=== PATIENT | female | born 2005 | race Two or more races ===

== ENCOUNTER 2025-04-24 15:46 | Observation (INO) | payer MEDICAID, SELFPAY ==
[2025-04-24 15:53] VITALS: BP 107/57; PULSE 85; RESP 100; RESP 16; TEMP 37.1; O2SAT 100; BMI 29.5
== END 2025-04-24 16:15 | disposition home or self-care (01) ==
PROVIDERS: Admitting Provider Obstetrics & Gynecology; Visit Provider Obstetrics & Gynecology
DX: O9A.213 Injury, poisoning and certain other consequences of external causes complicating pregnancy, third trimester (principal); S39.92XA Unspecified injury of lower back, initial encounter; Z3A.33 33 weeks gestation of pregnancy; V48.6XXA Car passenger injured in noncollision transport accident in traffic accident, initial encounter; Y92.410 Unspecified street and highway as the place of occurrence of the external cause
CPT/HCPCS: 59025; 59899

== ENCOUNTER 2025-06-10 03:57 | Inpatient (IN) | payer MEDICAID, SELFPAY ==
[2025-06-10] VITALS (289 sets, daily range): BP systolic 82–133; BP diastolic 52–85; PULSE 73–109; RESP 16–99; TEMP 36.7–37.3; O2SAT 91–100; BMI 30.4
[2025-06-10] MEDS: RINGERS LACTATED 1000 ML 1,000 ML 125 ML IV ×2 (04:57→17:08)
[2025-06-10 05:01] LABS: Basophils # (Auto) 0.1 Thou/mm3 (0.0-0.2); Basophils % (Auto) 0 % (0-2.5); Eosinophils # (Auto) 0.1 Thou/mm3 (0.0-0.5); Eosinophils % (Auto) 1 % (0-10); Hematocrit 33.7 % (36.0-46.0); Hemoglobin 10.5 g/dL (12.0-16.0); Immature Granulocytes Auto 0.07 Thou/mm3 (0.00-0.00); Lymphocytes # (Auto) 3.4 Thou/mm3 (1.0-4.8); Lymphocytes % (Auto) 29 % (10-50); Mean Corpuscular HGB Conc 31.2 g/dl (31.0-37.0); Mean Corpuscular Hemoglobin 21.1 pg (25.0-35.0); Mean Corpuscular Volume 68 fL (80-100); Monocytes # (Auto) 0.9 Thou/mm3 (0.0-0.8); Monocytes % (Auto) 8 % (0-12); Neutrophils # (Auto) 7.2 Thou/mm3 (1.8-7.7); Neutrophils % (Auto) 62 % (37-80); Nucleated Red Blood Cell # 0.00 Thou/mm3 (0.00-0.00); Nucleated Red Blood Cell % 0 /100 WBC (0); Platelet Count 324 Thou/mm3 (140-440); RDW Standard Deviation 47.4 fL (36.4-46.3); Red Blood Count 4.97 Miln/mm3 (4.00-5.20); White Blood Count 11.7 Thou/mm3 (4.5-11.0)
[2025-06-10 05:03] LABS: Amphetamine/Metham Scrn,Ur OB Negative (Negative); Benzoylecgonine Screen, Ur OB Negative (Negative); Opiate Screen,Urine OB Negative (Negative); THC Screen,Urine OB Negative (Negative)
[2025-06-10 05:15] LABS: Path Review Blood Smear Sent to Pathologist
[2025-06-10] MEDS: Ampicillin Inj 2,000 MG in SODIUM CHLORIDE 0.9% (POP) 100 ML 200 MG IV (05:15)
[2025-06-10 05:44] LABS: Syphilis Nonreactive (Nonreactive)
--- NOTE | 2025-06-10 06:19 | ESHP_ITS ---
Documentation for date of: 06/10/25 OB Labor/Induct. HPI History of Present Illness Chief complaint: Labor : 1 Para: 0 Term pregnancies: 0 pregnancies: 0 Living children: 0 History of Abortions: Spontaneous and Elective: 0 History of Vaginal deliveries: 0 History of sections: No History of : No Date of last menstrual period: 09/02/24 A[place]STA: 06/09/25 Gestational age based on last menstrual period: 39 History of present illness: Erum Stanton is a 19-year-old at 40 weeks and 1 day gestation who presented to labor and delivery triage with contractions. The patient reported her pain as 9 out of 10 on the pain scale. She noted good movements and denied any other symptoms. The patient's has been complicated by uterine date size discrepancy and 3rd trimester anemia. She is an asymptomatic carrier of spinal muscular atrophy and tested positive for Group B strep. Her estimated due date is June 09, 2025, based on her last menstrual period. Upon examination in triage, the patient was found to be dilated to 4 centimeters, 80 percent effaced, and at station -2. She was subsequently admitted in early labor for further management and monitoring. 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 - CBC (04-25-2025): Hemoglobin 10.2 g/dL, hematocrit 35.5% - Group B Strep screening: Positive - Panel (12-29-2024): Blood group O-positive, antibody screen negative, rubella immune, RPR nonreactive, hepatitis B negative, HIV negative, gonorrhea negative, chlamydia negative History of Present Adequate Care: Yes Labs Labs: Positive: Rubella Titre and Group Beta Strep, Negative: RPR, Hepatitis B, HIV, Chlamydia and Gonorrhea and Unknown: Herpes Type 1, Herpes Type 2 and Covid-19 Review of Systems Review of Systems Systems Reviewed: All systems reviewed, normal except as documented Past Medical History Surgical History SURGICAL: Negative Section Meds Home Medications and Allergies Home Medications ?Medication ?Instructions ?Recorded ?Confirmed ?Type ferrous sulfate 325 mg (65 mg 325 mg PO .QD 04/24/25 0 06/10/25 History iron) tablet vits no.129-ferrous fum 1 tab PO .QD 04/24/25 06/10/25 History 27 mg iron-folic acid 800 mcg tablet ( One Daily) Allergies Allergy/AdvReac Type Severity Reaction Status Date / Time No Known Allergies Allergy Verified 06/10/25 04:05 OB Exam Physical Exam Vital signs: Temp Pulse Resp BP Pulse Ox 98.3 F 86 17 118/69 97 06/10/25 05:57 06/10/25 06:17 06/10/25 05:57 06/10/25 06:17 06/10/25 06:16 Constitutional Constitutional: no acute distress Routine HEENT Exam Head: Present normocephalic and atraumatic Eye: Present EOMI and PERRL ENT: Present mucous membranes moist Routine Neck Exam Neck: Present supple and trachea midline Routine Cardiovascular Exam Cardiovascular: Present RRR Routine Abdominal Exam Abdominal: Present soft and normoactive bowel sounds Detailed Labor and Delivery Exam Dilation (cm): 4 Effacement (%): 100 Cervix position: mid station: -3 Consistency: firm Presentation: Vertex Baseline heart rate: 145 monitor accelerations: 15x15 monitor decelerations: None Routine Extremities Exam Extremities: Present full ROM Routine Skin Exam Skin: Present intact, dry and warm Routine Neurological Exam Neurological: Present alert, oriented X3 and CN II-XII intact Routine Psychiatric Exam Psychiatric: Present normal affect and normal thought process OB Results Labs 06/10/25 04:39 Labs: Short CBC 06/10/25 Range/Units 04:39 WBC 11.7 H (4.5-11.0) Thou/mm3 Hgb 10.5 L (12.0-16.0) g/dL Hct 33.7 L (36.0-46.0) % Plt Count 324 (140-440) Thou/mm3 OB Assessment & Plan Assessment and Plan (1) Active labor at term: Status: Acute Assessment and plan: Assessment: Patient is in early labor at 40 weeks and 1 day gestation. She presented with contractions and good movement. Cervical exam revealed 4 cm dilation, 80% effacement, and station -2. risks include uterine date size discrepancy and 3rd trimester anemia. Patient is GBS positive and an asymptomatic carrier of spinal muscular atrophy. Recent hemoglobin was 10.2 g/dL with hematocrit of 35.5%. Plan: - Admit to inpatient status for labor and delivery - Establish IV access - Initiate lactated Ringer's solution at 125 mL/hour - Obtain admission labs: CBC, type and screen, RPR - Implement continuous maternal monitoring - Administer GBS prophylaxis as indicated - Offer epidural analgesia when desired - Manage pain as per unit protocol - Implement expectant management initially - Consider oxytocin augmentation if labor progression slows - Anticipate vaginal delivery
[2025-06-10] MEDS: Ampicillin Inj 1,000 MG in SODIUM CHLORIDE 0.9% (Popper) 50 ML 50 MG IV ×3 (09:03→17:22)
--- NOTE | 2025-06-10 09:25 | PD.LDPN ---
Documentation for date of: 06/10/25 OB Labor Progress Note Pelvic Exam Dilation (cm): 6 Effacement (%): 80 station: -1 Amniotic membrane status: Ruptured Contractions Monitor mode: External Contraction frequency: 3-5 Contraction pattern: Coupling Contraction intensity: Moderate Status status: Category ll Assessment and Plan Comments: I assumed care of Anibal at 0700 this morning. In brief, she is a with SIUP at 40w1d admitted for early labor at 4cm. risks include uterine date size discrepancy and 3rd trimester anemia. Patient is GBS positive and an asymptomatic carrier of spinal muscular atrophy. Admission Hgb 10.5. She is comfortable with epidural. Cat I FHRT ctx q4min SCE: 80/-1, AROM performed with clear fluid noted. Plan to continue expectant management. Will initiate IV pitocin if indicated Fully treated for GBS +, continue abx Will continue to closely monitor CEFM Safe to proceed Ofelia Fitzpatrick MD
[2025-06-10] MEDS: ACETAMINOPHEN 500 MG TABLET 1000 MG PO (17:21)
[2025-06-10] MEDS: OXYTOCIN in NS 20 units 20 UNIT/1,000 ML BAG 125 UNIT IV (18:21)
[2025-06-10] MEDS: METHYLERGONOVINE INJ 0.2 MG/ML VIAL IM (18:32)
[2025-06-10] MEDS: BENZO/LANO/ALOE (Dermoplast) 60 GM CAN 1 SPRAY TOP (19:21)
--- NOTE | 2025-06-10 20:12 | OBDSUM_ITS ---
Data ([facility]) Data Hx Section: No : 1 Term: 0 : 0 Livin Abortions: Spontaneous & Theraputic: 0 Delivery Data ([facility]) Labor Data Initiation of labor: Spontaneous Induction/Augmentation Agent: None ROM date: 06/10/25 ROM time: 09:21 Amniotic membrane rupture type: Artificial Amniotic fluid description: Clear Delivery Data Onset of labor date: 06/10/25 Onset of labor time: 04:20 Complete dilation date: 06/10/25 Complete dilation time: 15:20 delivery date: 06/10/25 delivery time: 18:19 Placenta delivery date: 06/10/25 Placenta delivery time: 18:23 Stage 1 total time: Labor - Stage 1 Duration 11 hours and 0 minutes Delivered by: Ofelia Fitzpatrick Delivery nurse: dhaval Ley nurse: Cardiad Loya RN Support person(s) at delivery: FOB Other staff at delivery: Tina Marroquin RN Delivery Method Delivery method: Normal Vaginal Delivery Presentation: Vertex Anesthesia Type Anesthesia Type: Epidural Placenta Placenta delivery description: Spontaneous cord blood collection: Cord Blood Type Episiotomy Episiotomy description: None Umbilical Cord cord description: 3 Vessels Additional Procedures Erum is a 19yo [id number] s/p uncomplicated at 40&1 after presenting in active labor, delivering at 1819 on 06/10/2025. On presentation, SCE was 4cm. She received an epidural. She had AROM. She progr essed to C/C/0 at which point she began pushing. With good maternal pushing efforts, infant's head delivered OA and restituted BEATA. One loose nuchal cord reduced. Left anterior shoulder delivered easily followed by posterior shoulder and corpus. Infant had spontaneous cry and was vigorous. Apgars 9/9. Infant placed on maternal abdomen where nose/mouth were suctioned and dried/stimulated. After approximately 1 minute, cord was clamped x2 and cut by FOB. Cord blood collected for typing. With fundal massage and cord traction, placenta delivered spontaneously and intact with 3 vessel centrally inserted cord. Bimanual massage performed and IV pitocin given per protocol with fundus then firm at u-2cm and hemostasis noted. Inspection of perineum and vagina revealed bilateral labial lacerations and a 2nd degree midline perineal laceration which were repaired in routine fashion with 4-0 and 3-0 vicryl, respectively- total reapproximation achieved. Small trickle of blood, so sweep just within cervix/DEB performed which retrieved a small amount of clot. 0.2mg IM methergine given with observed hemostasis after. Slight oozing on the left aspect of the vaginal wall that extended up from the 2nd degree laceration. Several stitches placed, but continued to ooze, so vaginal packing was placed. All counts correct x2, [address] Mom and infant were doing well when I left the room. Ofelia Fitzpatrick MD Complications Complications: none [facility] Data ([facility]) We[facility]ert Data order: 1 's gender: Male Identification band number: [id number] weight (gms): 3340 g Weight (pounds): 7 lbs and 5.8 ozs length: 50.5 cm 1 minute: 9 5 minutes: 9
--- NOTE | 2025-06-10 20:39 | PC.NURSE ---
Dr. Fitzpatrick at bedside removing vag packing.
[2025-06-10] MEDS: IBUPROFEN TAB 400 MG TABLET 800 MG PO (20:45)
[2025-06-11 03:53] VITALS: BP 103/67; PULSE 97; RESP 16; TEMP 36.6; O2SAT 96
[2025-06-11] MEDS: IBUPROFEN TAB 400 MG TABLET 800 MG PO (06:10)
[2025-06-11 07:00] LABS: Basophils # (Auto) 0.0 Thou/mm3 (0.0-0.2); Basophils % (Auto) 0 % (0-2.5); Eosinophils # (Auto) 0.1 Thou/mm3 (0.0-0.5); Eosinophils % (Auto) 1 % (0-10); Hematocrit 30.1 % (36.0-46.0); Hemoglobin 9.1 g/dL (12.0-16.0); Immature Granulocytes Auto 0.08 Thou/mm3 (0.00-0.00); Lymphocytes # (Auto) 3.4 Thou/mm3 (1.0-4.8); Lymphocytes % (Auto) 23 % (10-50); Mean Corpuscular HGB Conc 30.2 g/dl (31.0-37.0); Mean Corpuscular Hemoglobin 21.1 pg (25.0-35.0); Mean Corpuscular Volume 70 fL (80-100); Monocytes # (Auto) 1.2 Thou/mm3 (0.0-0.8); Monocytes % (Auto) 8 % (0-12); Neutrophils # (Auto) 10.0 Thou/mm3 (1.8-7.7); Neutrophils % (Auto) 67 % (37-80); Nucleated Red Blood Cell # 0.00 Thou/mm3 (0.00-0.00); Nucleated Red Blood Cell % 0 /100 WBC (0); Platelet Count 311 Thou/mm3 (140-440); RDW Standard Deviation 49.3 fL (36.4-46.3); Red Blood Count 4.31 Miln/mm3 (4.00-5.20); White Blood Count 14.9 Thou/mm3 (4.5-11.0)
[2025-06-11] MEDS: DOCUSATE SOD 100 MG CAPSULE PO (09:19)
[2025-06-11] MEDS: PRENATAL VITAMIN/FE FUM/FA TABLET 1 TAB PO (09:25)
[2025-06-11 11:56] VITALS: BP 106/68; PULSE 72; RESP 18; TEMP 36.3; O2SAT 96
[2025-06-11] MEDS: ACETAMINOPHEN 325 MG TABLET 650 MG PO (12:03)
--- NOTE | 2025-06-11 14:32 | PD.LDDS ---
DS: Providers Provider Date of admission: 06/10/25 04:55 Primary care physician: Physician No Primary/Family Admitting Provider: Mike Baptiste MD Attending Provider on Admission: Mike Baptiste MD Consults: 06/10/25 20:09 Referral Routine Comment: Attending Provider on DC: Ofelia Fitzpatrick MD Discharging Provider: Ofelia Fitzpatrick MD DS: Diagnosis Discharge Diagnosis (1) care and examination immediately after delivery: Status: Acute (2) Active labor at term: Status: Acute Problem List Completed Was Problem List Reviewed/Reconciled?: Yes Summary/Hosp Course Brief History: Erum Stanton is a 19-year-old at 40 weeks and 1 day gestation who presented to labor and delivery triage with contractions. The patient reported her pain as 9 out of 10 on the pain scale. She noted good movements and denied any other symptoms. The patient's has been complicated by uterine date size discrepancy and 3rd trimester anemia. She is an asymptomatic carrier of spinal muscular atrophy and tested positive for Group B strep. Her estimated due date is June 09, 2025, based on her last menstrual period. Upon examination in triage, the patient was found to be dilated to 4 centimeters, 80 percent effaced, and at station -2. She was subsequently admitted in early labor for further management and monitoring. 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 - CBC (04-25-2025): Hemoglobin 10.2 g/dL, hematocrit 35.5% - Group B Strep screening: Positive - Panel (12-29-2024): Blood group O-positive, antibody screen negative, rubella immune, RPR nonreactive, hepatitis B negative, HIV negative, gonorrhea negative, chlamydia negative --- Anibal is doing well on PPD1 s/p uncomplicated on 06/10. She has had an uncomplicated course, meeting all milestones and feels ready for discharge home. She is ambulating without lightheadedness, tolerating regular diet no n/v, spontaneously voiding without issue. She has no chest pain or shortness of breath. No fevers or chills. Minimal, appropriate discomfort. Vitals normal, benign exam. Hemodynamically stable with no evidence of infection. PP Hgb 9.1 from starting 10.5. No sx of anemia. Peripartum Data Delivery Method: Normal Vaginal Delivery Episiotomy Description: None Status at Discharge Functional status at discharge: independent ambulation Overall status at discharge: patient is back to baseline Time Spent with Patient Time attestation: Total time spent providing and/or coordinating discharge services: Exam Vital Signs Temp Pulse Resp BP Pulse Ox O2 Del Method 97.3 F 72 18 106/68 96 Room Air 06/11/25 11:56 06/11/25 11:56 06/11/25 11:56 06/11/25 11:56 06/11/25 11:56 06/11/25 11:56 Narrative Exam General: well developed, well nourished, no acute distress, conversant Cardiac: normal heart rate Lungs: breathing without distress Abdomen: soft, post-gravid, non-tender, no rebound or guarding, Fundus firm at u-3cm. Extremities: no pain with palpation of calves, trace edema of BLE Discharge Plan Plan Patient Disposition: HOME (Self Care) Patient condition on transfer: Stable Prescriptions/Referrals Prescriptions/Med Rec: New docusate sodium 100 mg Capsule 100 mg PO BID 10 Days Qty: 20 0RF ibuprofen 600 mg tablet 600 mg PO Q6H PRN (Reason: See Comments) 10 Days Qty: 20 0RF ferrous sulfate 325 mg (65 mg iron) tablet 325 mg PO QDAY Qty: 30 0RF Continued ferrous sulfate 325 mg (65 mg iron) tablet 325 mg PO .QD Patient Comments: Take 1 tablet by mouth twice a day One Daily 27 mg iron- 800 mcg tablet 1 tab PO .QD Patient Comments: Take 1 tablet by mouth once a day Referrals: No Primary/Family,Physician [Primary Care Provider] - Patient/Caregiver Discharge Instructions Discharge Activity: activity as tolerated and other Other Discharge Activity Instructions:: vaginal rest and no heavy lifting more than 10 pounds for 6 weeks Other Discharge Diet Instructions: regular Education Materials: After a Vaginal Print Language: Polish Activity Restrictions/Additional Instructions: follow up with your ob clinic in 2 to 4 weeks, call for appointment Stand Alone Forms: [employer] Info., Patient Portal Info Letter Discharge Order Discharge Orders: Discharge (Routine); Ordered 06/11/25 Ordered By: Ofelia Fitzpatrick Planned Discharge Date 06/11/25
[2025-06-11 16:45] VITALS: BP 99/61; PULSE 100; O2SAT 98
== END 2025-06-11 16:51 | disposition home or self-care (01) | DRG 560 ==
LOC: S4SX 20:22 → S4NX 21:04
PROVIDERS: Obstetrics & Gynecology; Admitting Provider Obstetrics & Gynecology; Visit Provider Obstetrics & Gynecology
DX: O48.0 Post-term pregnancy (principal); Z14.8 Genetic carrier of other disease; Z3A.40 40 weeks gestation of pregnancy; Z37.0 Single live birth; O99.824 Streptococcus B carrier state complicating childbirth; O99.02 Anemia complicating childbirth; O70.1 Second degree perineal laceration during delivery; O69.81X0 Labor and delivery complicated by cord around neck, without compression, not applicable or unspecified
CPT/HCPCS: 36415; 59025; 59409; 80307; 85025; 86780; 86850; 86900; 86901; 94762; J0290; J2210; J2590; J2795; J3010; J7050; J7120; A9270